=== PATIENT | male | born 1970 | race Caucasian/White ===

== ENCOUNTER 2017-05-11 23:13 | Emergency (ER) | payer OTHER ==
--- NOTE | 2017-05-11 23:30 | EDPHY ---
H & P Stated Complaint: right,outer foot inj @2230 HPI/ROS: HPI CHIEF COMPLAINT: Right foot pain HISTORY OF PRESENT ILLNESS: This patient very pleasant 47-year-old male, otherwise healthy no significant medical history presents emergency room with right lateral foot pain. Patient states that he was walking out of a building and stepped on flag stone that were . He rolled his foot. He heard a pop and now has lateral right foot pain. Unable to bear weight. No significant swelling. This happened 30 minutes prior to arrival. Denies ankle pain or knee pain. Pain is currently 6/10. Past Medical History: No significant medical history Past Surgical History: No significant surgical history Social History: Smokes tobacco daily, denies illicit drugs alcohol. Works for [employer]. Family History: Noncontributory ROS REVIEW OF SYSTEMS: A comprehensive 10 point review of systems is otherwise negative aside from elements mentioned in the history of present illness. Exam Constitutional triage nursing summary reviewed, vital signs reviewed, awake/ alert. Eyes normal conjunctivae and sclera, EOMI, PERRLA. HENT normal inspection, atraumatic, moist mucus membranes, no epistaxis, neck supple/ no meningismus, no raccoon eyes. Respiratory clear to auscultation bilaterally, normal breath sounds, no respiratory distress, no wheezing. Cardiovascular rate normal, regular rhythm, no murmur, no edema, distal pulses normal. Gastrointestinal soft, non-tender, no rebound, no guarding, normal bowel sounds, no distension, no pulsatile mass. Genitourinary no CVA tenderness. Musculoskeletal right lower extremity: Right foot is neurovascular intact good distal pulse, good cap refill, tender palpation over the lateral foot, specifically tender palpation over the 5th and 4th metatarsal. Otherwise no significant swelling. No compartment syndrome. no midline vertebral tenderness , full range of motion, no calf swelling, no tenderness of extremities, no meningismus, good pulses, neurovascularly intact. Skin pink, warm, & dry, no rash, skin atraumatic. Neurologic awake, alert and oriented x 3, AAOx3, moves all 4 extremities equally, motor intact, sensory intact, CN II-XII intact, normal cerebellar, normal vision, normal speech. Psychiatric normal mood/affect. Heme/Lymph/Immune no lymphadenopathy. Differential Diagnosis: Includes but is not limited to in a particular order for contusion, metatarsal fracture, soft tissue injury, sprain Medical Decision Making: Plan for this patient x-ray right foot. Declined pain medicine here in emergency room. Crutches. Splint. Re-evaluation: ED x-ray right foot: This shows metatarsal fracture the base of the 5th metatarsal. Patient be splinted. Crutches. Follow up with Podiatry. Patient understands follow-up with Podiatry. Elevate leg. Ice. Antibiotics her pain medicine. Crutches. Splint. Return if any further questions or concerns. Source: Patient - Personal History Current Tetanus/Diphtheria Vaccine: Yes Current Tetanus Diphtheria and Acellular Pertussis (TDAP): Yes Tetanus Vaccine Date: 2011 - Medical/Surgical History Hx Asthma: No Hx Chronic Respiratory Disease: Yes Hx Diabetes: No Hx Cardiac Disease: No Hx Renal Disease: No Hx Cirrhosis: No Hx Alcoholism: No Hx HIV/AIDS: No Hx Splenectomy or Spleen Trauma: No Other PMH: COPD - Social History Smoking Status: Current every day smoker Constitutional: Initial Vital Signs Temperature (C) 36.6 C 05/11/17 23:14 Heart Rate 80 05/11/17 23:14 Respiratory Rate 18 05/11/17 23:14 Blood Pressure 151/86 H 05/11/17 23:14 O2 Sat (%) 95 05/11/17 23:14 O2 Delivery Mode Room Air Allergies/Adverse Reactions: No Known Allergies Allergy (Unverified 05/11/17 23:18) Home Medications: Medication Instructions Recorded NK [No Known Home Meds] 05/11/17 Medical Decision Making - Diagnostics Imaging Results: Imaging Impressions Foot X-Ray 05/11/17 23:19 Impression: Nondisplaced base of fifth metatarsal fracture. Departure - Departure Disposition: Home, Routine, Self-Care Clinical Impression: Foot contusion Qualifiers: Encounter type: initial encounter Laterality: right Qualified Code(s): S90.31XA - Contusion of right foot, initial encounter Foot fracture, right Qualifiers: Encounter type: initial encounter Fracture type: closed Qualified Code(s): S92.901A - Unspecified fracture of right foot, initial encounter for closed fracture Condition: Good Instructions: Foot Contusion (ED) Additional Instructions: 1. Ice your foot. 2. Anti-inflammatory pain medicine. 3. Use crutches to help ambulate. Walking boot. 4. If continue have pain follow up with Orthopedics. Referrals: Fausto Garcia DPM [Doctor of Podiatric Medicine] - As per Instructions
[2017-05-12 00:42] VITALS: BP 161/105; PULSE 74; RESP 14; TEMP 97.7; O2SAT 94
== END 2017-05-12 00:41 | disposition home or self-care (01) ==
DX: S92.354A Nondisplaced fracture of fifth metatarsal bone, right foot, initial encounter for closed fracture (principal); S90.31XA Contusion of right foot, initial encounter; J44.9 Chronic obstructive pulmonary disease, unspecified; F17.200 Nicotine dependence, unspecified, uncomplicated; X58.XXXA Exposure to other specified factors, initial encounter

== ENCOUNTER → 2017-05-13 | Outpatient (CLI) | payer OTHER | LOC: BRMIMAGING 15:02 | PROVIDERS: ATTEND Internal Medicine | DX: S92.354D Nondisplaced fracture of fifth metatarsal bone, right foot, subsequent encounter for fracture with routine healing (principal) | CPT/HCPCS: 73610-PO; 73630-PO ==

== ENCOUNTER 2018-09-29 16:24 | Emergency (ER) | payer SELFPAY ==
--- NOTE | 2018-09-29 16:31 | EDPHY ---
H & P Stated Complaint: cp/l arm tingling since yesterday Time Seen by Provider: 09/29/18 16:31 HPI/ROS: CHIEF COMPLAINT: Chest pain, chronic left arm tingling HISTORY OF PRESENT ILLNESS: The patient presents to the ED with a 1 day history of sharp anterior chest pain. The patient reports that his symptoms are reproducible. The patient denies any cough or congestion. He denies pleuritic chest pain. The patient does have a history of COPD secondary to ongoing cigarette use. He denies any history of exertional chest pain or shortness of breath. He denies any history of fall or trauma. His symptoms are worsened with palpation and movement. REVIEW OF SYSTEMS: A comprehensive 10 point review of systems is otherwise negative aside from elements mentioned in the history of present illness. Source: Patient - Personal History Current Tetanus Diphtheria and Acellular Pertussis (TDAP): Yes Tetanus Vaccine Date: 2011 - Medical/Surgical History Hx Asthma: No Hx Chronic Respiratory Disease: Yes Hx Diabetes: No Hx Cardiac Disease: No Hx Renal Disease: No Hx Cirrhosis: No Hx Alcoholism: No Hx HIV/AIDS: No Hx Splenectomy or Spleen Trauma: No Other PMH: COPD - Social History Smoking Status: Current every day smoker - Physical Exam Exam: General Appearance: Alert, no distress Eyes: Pupils equal and round no pallor or injection ENT, Mouth: Mucous membranes moist Respiratory: Tenderness to palpation left anterior chest wall over the costal sternal junction Cardiovascular: Regular rate and rhythm Gastrointestinal: Abdomen is soft and nontender, no masses, bowel sounds normal Neurological: A&O, normal motor function, normal sensory exam, normal cranial nerves Skin: Warm and dry, no rashes Musculoskeletal: Neck is supple nontender Extremities: symmetrical, full range of motion Psychiatric: Patient is oriented X 3, there is no agitation Constitutional: Initial Vital Signs Temperature (C) 36.9 C 09/29/18 16:28 Heart Rate 84 09/29/18 16:28 Respiratory Rate 19 09/29/18 16:28 Blood Pressure 144/111 H 09/29/18 16:28 O2 Sat (%) 96 09/29/18 16:28 O2 Delivery Mode Room Air Allergies/Adverse Reactions: No Known Allergies Allergy (Verified 09/29/18 16:27) Home Medications: Medication Instructions Recorded Proair Hfa 09/29/18 Symbicort 160-4.5 Mcg Inh (*) 09/29/18 Medical Decision Making - Diagnostics EKG Interpretation: EKG: Complete interpretation has been separately recorded in the [email or web address] archive. Summary impression: Sinus rhythm, no ischemic changes noted Imaging Results: Imaging Impressions Chest X-Ray 09/29/18 16:32 Impression: Mild lung hyperinflation, with no focal infiltrate. ED Course/Re-evaluation: Patient presents the ED with sharp left anterior chest pain consistent with costochondritis. The patient has no risk factors for coronary artery disease nor is is history and exam suggestive of as an etiology. The patient's EKG is normal. The patient's troponin is normal. His chest x- ray is negative. The patient's vital signs are stable. I am going to recommend that the patient begin ibuprofen 600 mg 3 times a day. The patient is advised to return to the ED for markedly worsening symptoms or other concerns. Differential Diagnosis: Differential diagnosis considered includes asthma, bronchitis, pneumonia, acute coronary syndrome, pericarditis, pneumothorax, costochondritis - Data Points Laboratory Results: Laboratory Results 09/29/18 16:39 09/29/18 16:39 09/29/18 09/29/18 09/29/18 16:43 16:39 16:39 WBC 9.93 10^3/uL H 10^3/uL (3.80-9.50) RBC 5.01 10^6/uL 10^6/uL (4.40-6.38) Hgb 15.5 g/dL g/dL (13.7-17.5) Hct 45.2 % % (40.0-51.0) MCV 90.2 fL fL (81.5-99.8) MCH 30.9 pg pg (27.9-34.1) MCHC 34.3 g/dL g/dL (32.4-36.7) RDW 14.1 % % (11.5-15.2) Plt Count 366 10^3/uL 10^3/uL (150-400) MPV 8.9 fL fL (8.7-11.7) Neut % (Auto) 60.6 % % (39.3-74.2) Lymph % (Auto) 24.2 % % (15.0-45.0) Woods % (Auto) 9.3 % % (4.5-13.0) Eos % (Auto) 4.5 % % (0.6-7.6) Baso % (Auto) 1.1 % % (0.3-1.7) Nucleat RBC Rel Count 0.0 % % (0.0-0.2) Absolute Neuts (auto) 6.02 10^3/uL 10^3/uL (1.70-6.50) Absolute Lymphs (auto) 2.40 10^3/uL 10^3/uL (1.00-3.00) Absolute Monos (auto) 0.92 10^3/uL H 10^3/uL (0.30-0.80) Absolute Eos (auto) 0.45 10^3/uL H 10^3/uL (0.03-0.40) Absolute Basos (auto) 0.11 10^3/uL H 10^3/uL (0.02-0.10) Absolute Nucleated RBC 0.00 10^3/uL 10^3/uL (0-0.01) Immature Gran % 0.3 % % (0.0-1.1) Immature Gran # 0.03 10^3/uL 10^3/uL (0.00-0.10) Sodium 138 mEq/L mEq/L (135-145) Potassium 4.3 mEq/L mEq/L (3.5-5.2) Chloride 106 mEq/L mEq/L (97-110) Carbon Dioxide 23 mEq/l mEq/l (22-31) Anion Gap 9 mEq/L mEq/L (6-14) BUN 9 mg/dL mg/dL (7-23) Creatinine 0.9 mg/dL mg/dL (0.7-1.3) Estimated GFR > 60 Glucose 84 mg/dL mg/dL (70-100) Calcium 9.6 mg/dL mg/dL (8.5-10.4) POC Troponin I 0.00 ng/mL ng/mL (0.00-0.08) Point of Care Test Results: Chemistry 09/29/18 16:43 POC Troponin I 0.00 ng/mL ng/mL (0.00-0.08) Departure - Departure Disposition: Home, Routine, Self-Care Clinical Impression: Costochondritis, acute Condition: Good Instructions: Costochondritis (ED) Additional Instructions: 1. Take Ibuprofen or Motrin 600 mg by mouth three times a day. 2. Your EKG and laboratory testing are normal. Her chest x-ray demonstrates no evidence of obvious disease. 3. Please return to the ED for markedly worsening symptoms or other concerns. 4. Please schedule a follow-up appointment with your primary care provider for a recheck within the week for any ongoing mild symptoms. Referrals: NONE *PRIMARY CARE P,. [Primary Care Provider] - As per Instructions
[2018-09-29 17:06] LABS: PLATELET COUNT 366 10^3/uL (150-400)
--- NOTE | 2018-09-29 17:29 | CPEKG ---
Test Reason : OPEN Blood Pressure : / mmHG Vent. Rate : 077 BPM Atrial Rate : 077 BPM P-R Int : 138 ms QRS Dur : 098 ms QT Int : 367 ms P-R-T Axes : 059 079 017 degrees QTc Int : 416 ms Sinus rhythm Confirmed by Yobani Lopez ([id number]) on 09/29/2018 5:29:11 PM Referred By: Yobani Lopez Confirmed By:Yobani Lopez
[2018-09-29 17:46] VITALS: BP 130/77
== END 2018-09-29 17:44 | disposition home or self-care (01) ==
DX: M94.0 Chondrocostal junction syndrome [Tietze] (principal); J44.9 Chronic obstructive pulmonary disease, unspecified; F17.200 Nicotine dependence, unspecified, uncomplicated
CPT/HCPCS: 84484-ER